=== PATIENT | male | born 1945 | race Caucasian/White ===

== ENCOUNTER 2020-12-02 15:05 | Emergency (ER) | payer MEDICARE, SELFPAY ==
[2020-12-02 15:06] VITALS: BP 144/82; PULSE 71; RESP 14; TEMP 36.7; O2SAT 99; BMI 24.3
--- NOTE | 2020-12-02 15:20 | XRR_ITS ---
PROCEDURE INFORMATION: Exam: XR Left Ribs Exam date and time: 12/02/2020 3:20 PM Age: 75 years old Clinical indication: Injury or trauma; Fall; Rib area, left side; Blunt trauma; Injury details: Fell off horse; Additional info: L sided rib pain TECHNIQUE: Imaging protocol: XR Left ribs. Views: 2 views. COMPARISON: CR (CHEST, ) 12/02/2020 3:48 PM FINDINGS: Bones/joints: Nondisplaced left 8th and 9th rib fractures are appreciated. Irregularity of the left midclavicle may be secondary to prior injury. Pleural space: No pneumothorax is seen. XR/XR ribs LT 2V* [id number] IMPRESSION: 1. Left 8th and 9th rib fractures. 2. Chronic appearing left midclavicle fracture.
--- NOTE | 2020-12-02 15:20 | CTR_ITS ---
PROCEDURE INFORMATION: Exam: CT Head Without Contrast Exam date and time: 12/02/2020 3:20 PM Age: 75 years old Clinical indication: Injury or trauma; Fall; Blunt trauma (contusions or hematomas); Consciousness not specified; Additional info: Rule out brain bleed TECHNIQUE: Imaging protocol: Computed tomography of the head without contrast. Radiation optimization: All CT scans at this facility use at least one of these dose optimization techniques: automated exposure control; mA and/or kV adjustment per patient size (includes targeted exams where dose is matched to clinical indication); or iterative reconstruction. COMPARISON: No relevant prior studies available. RADIATION DOSE METRICS: Total DLP (mGy-cm): 844.47 FINDINGS: Brain: Normal. No hemorrhage. Unremarkable white matter. No mass effect. Cerebral ventricles: No ventriculomegaly. Paranasal sinuses: A small amount of fluid is present in the right frontal, posterior ethmoid and maxillary sinuses. Mastoid air cells: Visualized mastoid air cells are well aerated. Orbital cavity: The intraorbital contents appear normal. Bones/joints: Nondisplaced right frontal bone fracture is noted extending into the right frontal sinus and right orbital roof. Soft tissues: Soft tissue swelling and a tiny laceration are present in the right aspect of the forehead. CT/CT head wo con* [id number] IMPRESSION: 1. No acute intracranial abnormality. 2. Nondisplaced right frontal bone fracture with extension into the right frontal sinus and right orbital roof. Radiation Dose CTDIVOL = (mGy): DLP = 844.47 (mGy-cm)
--- NOTE | 2020-12-02 15:20 | XRR_ITS ---
PROCEDURE INFORMATION: Exam: XR Right Forearm Exam date and time: 12/02/2020 3:20 PM Age: 75 years old Clinical indication: Injury or trauma; Fall; Blunt trauma (contusions or hematomas); Arm, lower; Right; Injury details: Fell of horse; Additional info: R forearm hematoma TECHNIQUE: Imaging protocol: XR Right forearm. Views: 2 views. COMPARISON: No relevant prior studies available. FINDINGS: Bones/joints: No fracture or dislocation. A small triceps tendon enthesophyte is noted. Soft tissues: Soft tissue swelling is seen in the mid forearm XR/XR forearm RT 2V [id number] IMPRESSION: No fracture or dislocation.
--- NOTE | 2020-12-02 15:20 | CTR_ITS ---
PROCEDURE INFORMATION: Exam: CT Maxillofacial Without Contrast Exam date and time: 12/02/2020 3:20 PM Age: 75 years old Clinical indication: Injury or trauma; Fall; Blunt trauma (contusions or hematomas); Forehead; Additional info: Orbital hematoma R, laceration TECHNIQUE: Imaging protocol: Computed tomography images of the face without contrast. Radiation optimization: All CT scans at this facility use at least one of these dose optimization techniques: automated exposure control; mA and/or kV adjustment per patient size (includes targeted exams where dose is matched to clinical indication); or iterative reconstruction. COMPARISON: CT head wo con* [id number] 12/02/2020 4:16 PM RADIATION DOSE METRICS: Total DLP (mGy-cm): 784.78 FINDINGS: Orbital cavity: The intraorbital contents appear normal. Bones/joints: Nondisplaced fracture of the right frontal bone is again seen extending into the right frontal sinus and right orbital roof and superior orbital rim. Paranasal sinuses: A small amount of fluid is present in the right frontal, posterior ethmoid and maxillary sinuses. Soft tissues: Soft tissue swelling and a tiny focus of subcutaneous air are present in the right aspect of the forehead. CT/CT facial bones wo con* [id number] IMPRESSION: Nondisplaced right frontal bone fracture with involvement of the right frontal sinus, and right orbital roof and superior rim Radiation Dose CTDIVOL = (mGy): DLP = 784.78 (mGy-cm)
--- NOTE | 2020-12-02 15:20 | XRR_ITS ---
PROCEDURE INFORMATION: Exam: XR Pelvis Exam date and time: 12/02/2020 3:20 PM Age: 75 years old Clinical indication: Injury or trauma; Other: Fell off horse; Blunt trauma (contusions or hematomas); Bilateral; Pelvic region; Additional info: Trauma screen TECHNIQUE: Imaging protocol: XR pelvis. Views: 1 or 2 view. COMPARISON: No relevant prior studies available. FINDINGS: Bones/joints: No fracture or dislocation. Soft tissues: Unremarkable. XR/XR pelvis 1-2V* [id number] IMPRESSION: No fracture or dislocation.
--- NOTE | 2020-12-02 15:20 | XRR_ITS ---
PROCEDURE INFORMATION: Exam: XR Chest Exam date and time: 12/02/2020 3:20 PM Age: 75 years old Clinical indication: Injury or trauma; Fall; Blunt trauma (contusions or hematomas); Injury details: Fell off horse; Additional info: Trauma screen TECHNIQUE: Imaging protocol: XR of the chest. Views: 1 view. COMPARISON: No relevant prior studies available. FINDINGS: Lungs: The lungs are clear. Pleural spaces: Unremarkable. No pleural effusion. No pneumothorax. Heart/Mediastinum: Unremarkable. No cardiomegaly. Bones/joints: Left 9th rib fracture is appreciated. XR/XR chest 1V portable [id number] IMPRESSION: No acute pulmonary abnormality. Left 9th rib fracture is seen. No pneumothorax.
--- NOTE | 2020-12-02 15:36 | W.ED.GENADLT ---
HPI - General Adult General: Chief complaint: ER Hold Stated complaint: FOREHEAD LAC S/P THROWN FROM HORSE Time Seen by Provider: 12/02/20 15:06 History of Present Illness: HPI narrative: Patient is a 75-year-old male without any significant past medical history presents emergency room after falling off his horse going at 30 mph with forehead laceration, right forearm/L posterior rib, and R knee pain. Patient denies any LOC. Patient says that he had mild bleeding from his forehead. Patient denies any other injuries. Patient reports road rashes on b/l arms. He has a severe allergic reaction to the the Tdap vaccine. No other complaints. Onset:1 hr ago Duration:1 hr Location: wild Severity:moderate Review of Systems Narrative: Constitutional: No fever, no chills. HEENT: No vision changes, +forehead laceration CV: No chest pain, no palpitations PULM: no cough, no dyspnea. GI: No abdominal pain, no N/V/D. : No dysuria MSKEL: +R forearm hematoma, +R knee cap pain SKIN: +road rashes NEURO: No headache, no focal weakness. HEME: No visible bruises PSYCH: Normal mood BACK: +L posterior thoracic back pain PFSH ED PFSH: Medical History (Updated 12/03/20 @ 03:04 by Dari Gil MD) COVID-19 vaccination declined Injury while horseback riding (12/02/20) With right open frontal bone fracture, nondisplaced, extension to right frontal sinus and right orbital roof and superior rim; left lateral 8th/9th rib fractures, left clavicle fracture, subcutaneous hematoma left flank and gluteal region Medical condition not demonstrated Surgical History (Updated 12/02/20 @ 22:16 by Dari Gil MD) History of ankle surgery Family History (Updated 12/02/20 @ 22:24 by Dari Gil MD) Other Family history non-contributory Social History (Updated 12/02/20 @ 22:45 by Dari Gil MD) Smoking and tobacco status: former smoker Alcohol intake: current Alcohol intake frequency: holidays/special occasions only Lives independently: Yes Highest education level completed: Professional Degree (MD, DO, REYNA, DVM, DDS, DPM, etc) 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 service: Yes 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 Additional social history: follows more eastern/holistic medical care practices requests that before any medications are given he be allowed to sense if will be able to tolerate them (ask him how to best do this) prefers mind/body techniques and non-pharmacological approaches to care Physical Exam Narrative: EXAM NARRATIVE: Head: +linear frontal forehead laceration Eyes: PERRL, conjunctiva without injection, EOMI, visual acuity unchanged in both eyes, EOMI b/l ENT: Mucous membrane moist, +mild R periorbital hematoma without any proptosis NECK: Supple, ROM intact LUNGS: LCTAB, no crackles/rhonchi CV: RRR ABDOMEN: Soft, nontender in all quadrants EXTREMITY: Normal ROM intact in all extremities, 2+ radials in the UE, +mild tenderness to palpation over the R forearm shaft, neurovascular senations intact in all extremities, +R knee cap tenderness to palpation, +patient able to bear weight over the R knee SKIN: +abrasions over the R and L arms, +linear forehead laceration NEURO: Awake and alert, no focal motor deficits PSYCH: Normal mood and affect Course Vital Signs: Vital signs: Vital Signs Temperature 98.0 F 12/03/20 06:24 Pulse Rate 76 12/03/20 15:28 Respiratory Rate 18 12/03/20 15:28 Blood Pressure 111/65 12/03/20 15:28 Pulse Oximetry 95 12/03/20 15:28 MDM - General Adult MDM Narrative: Medical decision making narrative: 75-year-old male who presents the emergency room after falling off a horse going at 30 mph. On exam, patient has a laceration over frontal face. In addition, patient reports right forearm, right knee and left back rib pain. Will work-up for trauma today. CT brain is negative for brain bleed. CT face showed orbital floor fracture and frontal bone fracture. Given laceration overlying the frontal bone, have discussed finding with patient as this may suggest an open fracture. I have offered patient transfer to outside hospital for possible washout. At this time, patient declined and elects to go home. Patient electing to leave AMA. Patient counseled regarding risks of leaving including severe morbidity including severe facial infection, brain infection, or any other unwanted consequences of leaving against medical advice today. Patient verbalizes understanding of the risks and still wishes to leave AMA. Signed AMA paperwork. Patient advised that patient is welcome to return at any time. Was instructed that patient may come back if symptoms continue to persist and that emergent adverse conditions have not fully been ruled out. Patient is A&Ox3 and has capacity and is of sound mind to make decisions. I have given patient a prescription for Bactrim and Keflex to go home with. Patient reassures me that he will take the antibiotics as needed. Again, patient refused to be transported to outside hospital for evaluation of complex open fracture. The wound was extensively irrigated and tapped with Steri-Strip. No sutures were placed given high concerns for possible open fracture and wound infection. I have informed patient to keep the wound clean. Chest x-ray showed left-sided eighth and ninth rib. Shortly prior to patient leaving AGAINST MEDICAL ADVICE, he sat up and suddenly became very lightheaded and almost passed out. Patient had a blood pressure reading of 70/30 and heart rate in the 40s. Patient never lost LOC, but report diaphoresis and fatigue. Eventually blood pressure improved with 1 L of IVF. I performed bedside fast which did not show any signs of acute abdominal bleed. CT chest and CT abdomen pelvis did not show any signs of acute or occult bleeding. H&H appears to be stable. No suspicion for cord injury as patient has no focal tenderness to palpation on reassessment. Again I will have offered patient transfer for operative washout as his wound may get infected given underlying fracture, patient declined at this time. Patient verbalized understanding of the risk of not getting a operative washout and verbalizes desire for observation and outpatient management. Patient still elects to stay in the hospital given symptoms of lightheadedness, diaphoresis during these episodes where he almost passed out. In addition, patient can planes of intractable rib pain despite multiple pain medication including fentanyl. Patient will need outpatient incentive spirometry. Patient will be admitted to the hospital for observation at this time. Disposition: Observation Lab Data: Labs: Lab Results 12/02/20 12/02/20 12/02/20 Range/Units 15:10 15:10 18:03 WBC 7.2 (4.0-10.0) 10^3/ uL RBC 4.15 (4.1-5.3) 10^6/u L Hgb 12.9 (11.7-16.6) g/dL Hct 39.7 L (42.0-52.0) % MCV 95.7 H (80-94) fl MCH 31.1 (28.0-34.0) pg MCHC 32.5 (30.0-36.0) g/dL RDW 12.4 (12.1-15.1) % Plt Count 172 (130-400) 10^3/c mm MPV 9.9 (7.4-10.4) fL Neut % (Auto) 46.1 % Lymph % (Auto) 44.4 % [place] % (Auto) 7.9 % Eos % (Auto) 0.4 % Baso % (Auto) 0.4 % Neut # (Auto) 3.32 (1.8-7.7) 10^3/u L Lymph # (Auto) 3.2 (0.8-4.8) 10^3/u L [place] # (Auto) 0.6 (0.2-0.9) 10^3/u L Eos # (Auto) 0.0 (0.0-0.8) 10^3/u L Baso # (Auto) 0.0 (0.0-0.1) 10^3/u L Nucleated RBC % (a uto) 0 % Nucleated RBCs # 0.0 /100WBC Sodium 141 (136-145) mmol/L Potassium 4.0 (3.5-5.1) mmol/L Chloride 106 (98-107) mmol/L Carbon Dioxide 24 (22-29) mmol/L Anion Gap 15.0 (5-19) BUN 14 (8-23) mg/dL Creatinine 1.1 (0.7-1.2) mg/dL GFR Calculation Not Reportable Glucose 130 H (65-115) mg/dL Calculated Osmolal ity 294 (285-295) mOsm/k g Calcium 8.4 L (8.5-10.5) mg/dL Total Bilirubin 0.5 (0.15-1.2) mg/dL AST 25 (0-40) U/L ALT 14 (0-41) U/L Alkaline Phosphata se 81 (40-130) IU/L Troponin T Gen 5 n g/L (0-15) ng/L Total Protein 6.4 L (6.6-8.7) g/dL Albumin 4.2 (3.5-5.2) g/dL Globulin 2.2 (1.3-4.6) g/dL Lipase 32 (13-60) U/L Blood Type A Positive Rho(D) Type Positive Antibody Screen Negative 12/02/20 12/02/20 12/02/20 Range/Units 18:03 18:03 20:20 WBC 12.9 H (4.0-10.0) 10^3/ uL RBC 4.08 L (4.1-5.3) 10^6/u L Hgb 12.7 (11.7-16.6) g/dL Hct 39.6 L (42.0-52.0) % MCV 97.1 H (80-94) fl MCH 31.1 (28.0-34.0) pg MCHC 32.1 (30.0-36.0) g/dL RDW 12.4 (12.1-15.1) % Plt Count 184 (130-400) 10^3/c mm MPV 10.1 (7.4-10.4) fL Neut % (Auto) 82.5 % Lymph % (Auto) 7.4 % [place] % (Auto) 9.0 % Eos % (Auto) 0.0 % Baso % (Auto) 0.4 % Neut # (Auto) 10.67 H (1.8-7.7) 10^3/u L Lymph # (Auto) 1.0 (0.8-4.8) 10^3/u L [place] # (Auto) 1.2 H (0.2-0.9) 10^3/u L Eos # (Auto) 0.0 (0.0-0.8) 10^3/u L Baso # (Auto) 0.1 (0.0-0.1) 10^3/u L Nucleated RBC % (a uto) 0 % Nucleated RBCs # 0.0 /100WBC Sodium 141 (136-145) mmol/L Potassium 4.0 (3.5-5.1) mmol/L Chloride 105 (98-107) mmol/L Carbon Dioxide 24 (22-29) mmol/L Anion Gap 16.0 (5-19) BUN 17 (8-23) mg/dL Creatinine 0.9 (0.7-1.2) mg/dL GFR Calculation Not Reportable Glucose 132 H (65-115) mg/dL Calculated Osmolal ity 295 (285-295) mOsm/k g Calcium 8.3 L (8.5-10.5) mg/dL Total Bilirubin 0.6 (0.15-1.2) mg/dL AST 24 (0-40) U/L ALT 13 (0-41) U/L Alkaline Phosphata se 78 (40-130) IU/L Troponin T Gen 5 n g/L 7 (0-15) ng/L Total Protein 5.9 L (6.6-8.7) g/dL Albumin 4.0 (3.5-5.2) g/dL Globulin 1.9 (1.3-4.6) g/dL Lipase (13-60) U/L Blood Type Rho(D) Type Antibody Screen 12/03/20 12/03/20 Range/Units 04:54 04:54 WBC 5.9 (4.0-10.0) 10^3/ uL RBC 3.09 L (4.1-5.3) 10^6/u L Hgb 9.6 L (11.7-16.6) g/dL Hct 29.6 L (42.0-52.0) % MCV 95.8 H (80-94) fl MCH 31.1 (28.0-34.0) pg MCHC 32.4 (30.0-36.0) g/dL RDW 12.6 (12.1-15.1) % Plt Count 146 (130-400) 10^3/c mm MPV 10.3 (7.4-10.4) fL Neut % (Auto) 64.6 % Lymph % (Auto) 22.4 % [place] % (Auto) 12.6 % Eos % (Auto) 0.0 % Baso % (Auto) 0.2 % Neut # (Auto) 3.84 (1.8-7.7) 10^3/u L Lymph # (Auto) 1.3 (0.8-4.8) 10^3/u L [place] # (Auto) 0.8 (0.2-0.9) 10^3/u L Eos # (Auto) 0.0 (0.0-0.8) 10^3/u L Baso # (Auto) 0.0 (0.0-0.1) 10^3/u L Nucleated RBC % (a uto) 0 % Nucleated RBCs # 0.0 /100WBC Sodium 136 (136-145) mmol/L Potassium 4.2 (3.5-5.1) mmol/L Chloride 107 (98-107) mmol/L Carbon Dioxide 22 (22-29) mmol/L Anion Gap 11.2 (5-19) BUN 15 (8-23) mg/dL Creatinine 0.7 (0.7-1.2) mg/dL GFR Calculation Not Reportable Glucose 115 (65-115) mg/dL Calculated Osmolal ity 284 L (285-295) mOsm/k g Calcium 7.2 L (8.5-10.5) mg/dL Total Bilirubin (0.15-1.2) mg/dL AST (0-40) U/L ALT (0-41) U/L Alkaline Phosphata se (40-130) IU/L Troponin T Gen 5 n g/L (0-15) ng/L Total Protein (6.6-8.7) g/dL Albumin (3.5-5.2) g/dL Globulin (1.3-4.6) g/dL Lipase (13-60) U/L Blood Type Rho(D) Type Antibody Screen Imaging Data^: Other Imaging: My impression: [address] [address]NCww ReportSigned Patient: Jonathan Campo #: [id number]: 8Acct#:[id number]/Sex: 75 / MADM Date: 12/02/20Loc: ERRoom/Bed:Attending Dr: Ordering Provider/Ordering MD: Lobo Guevara MD Date of Service: 12/02/20 Procedure(s): XR ribs LT 2V* [id number] Accession Number(s): [id number] Report Number: [id number] PROCEDURE INFORMATION: Exam: XR Left Ribs Exam date and time: 12/02/2020 3:20 PM Age: 75 years old Clinical indication: Injury or trauma; Fall; Rib area, left side; Blunt trauma; Injury details: Fell off horse; Additional info: L sided rib pain TECHNIQUE: Imaging protocol: XR Left ribs. Views: 2 views. COMPARISON: CR (CHEST, ) 12/02/2020 3:48 PM FINDINGS: Bones/joints: Nondisplaced left 8th and 9th rib fractures are appreciated. Irregularity of the left midclavicle may be secondary to prior injury. Pleural space: No pneumothorax is seen. XR/XR ribs LT 2V* [id number] IMPRESSION: 1. Left 8th and 9th rib fractures. 2. Chronic appearing left midclavicle fracture. Dictated By:Spike Arguelles MDSigned By:Spike Arguelles MDSigned Date/Time:12/02/20 1645DD/ [address] [address]EVnw ReportSigned Patient: Jonathan Campo #: [id number]: 8Acct#:[id number]/Sex: 75 / MADM Date: 12/02/20Loc: ERRoom/Bed:Attending Dr: Ordering Provider/Ordering MD: Lobo Guevara MD Date of Service: 12/02/20 Procedure(s): XR pelvis 1-2V* [id number] Accession Number(s): [id number] Report Number: [id number] PROCEDURE INFORMATION: Exam: XR Pelvis Exam date and time: 12/02/2020 3:20 PM Age: 75 years old Clinical indication: Injury or trauma; Other: Fell off horse; Blunt trauma (contusions or hematomas); Bilateral; Pelvic region; Additional info: Trauma screen TECHNIQUE: Imaging protocol: XR pelvis. Views: 1 or 2 view. COMPARISON: No relevant prior studies available. FINDINGS: Bones/joints: No fracture or dislocation. Soft tissues: Unremarkable. XR/XR pelvis 1-2V* [id number] IMPRESSION: No fracture or dislocation. Dictated By:Spike Arguelles MDSigned By:Spike Arguelles MDSigned Date/Time:12/02/20 1638DD/ [address] [address] [facility].[place], [place] [address]RN Scan ReportSigned Patient: Jonathan Campo #: [id number]: [id number]#:[id number]/Sex: 75 / MADM Date: 12/02/20Loc: ERRoom/Bed:Attending Dr: Ordering Provider/Ordering MD: Lobo Guevara MD Date of Service: 12/02/20 Procedure(s): CT head wo con* [id number] Accession Number(s): [id number] Report Number: [id number] PROCEDURE INFORMATION: Exam: CT Head Without Contrast Exam date and time: 12/02/2020 3:20 PM Age: 75 years old Clinical indication: Injury or trauma; Fall; Blunt trauma (contusions or hematomas); Consciousness not specified; Additional info: Rule out brain bleed TECHNIQUE: Imaging protocol: Computed tomography of the head without contrast. Radiation optimization: All CT scans at this facility use at least one of these dose optimization techniques: automated exposure control; mA and/or kV adjustment per patient size (includes targeted exams where dose is matched to clinical indication); or iterative reconstruction. COMPARISON: No relevant prior studies available. RADIATION DOSE METRICS: Total DLP (mGy-cm): 844.47 FINDINGS: Brain: Normal. No hemorrhage. Unremarkable white matter. No mass effect. Cerebral ventricles: No ventriculomegaly. Paranasal sinuses: A small amount of fluid is present in the right frontal, posterior ethmoid and maxillary sinuses. Mastoid air cells: Visualized mastoid air cells are well aerated. Orbital cavity: The intraorbital contents appear normal. Bones/joints: Nondisplaced right frontal bone fracture is noted extending into the right frontal sinus and right orbital roof. Soft tissues: Soft tissue swelling and a tiny laceration are present in the right aspect of the forehead. CT/CT head wo con* [id number] IMPRESSION: 1. No acute intracranial abnormality. 2. Nondisplaced right frontal bone fracture with extension into the right frontal sinus and right orbital roof. Radiation Dose CTDIVOL = (mGy): DLP = 844.47 (mGy-cm) Dictated By:Spike Arguelles MDSigned By:Spike Arguelles MDSigned Date/Time:12/02/20 1632DD/ [address] [place], [place] [address]WCal ReportSigned Patient: Jonathan Campo #: [id number]: 8Acct#:[id number]/Sex: MADM Date: 12/02/20Loc: ERRoom/Bed:Attending Dr: Ordering Provider/Ordering MD: Lobo Guevara MD Date of Service: 12/02/20 Procedure(s): XR forearm RT 2V 24646 Accession Number(s): [id number] Report Number: [id number] PROCEDURE INFORMATION: Exam: XR Right Forearm Exam date and time: 12/02/2020 3:20 PM Age: 75 years old Clinical indication: Injury or trauma; Fall; Blunt trauma (contusions or hematomas); Arm, lower; Right; Injury details: Fell of horse; Additional info: R forearm hematoma TECHNIQUE: Imaging protocol: XR Right forearm. Views: 2 views. COMPARISON: No relevant prior studies available. FINDINGS: Bones/joints: No fracture or dislocation. A small triceps tendon enthesophyte is noted. Soft tissues: Soft tissue swelling is seen in the mid forearm XR/XR forearm RT 2V 63677 IMPRESSION: No fracture or dislocation. Dictated By:Spike Arguelles MDSigned By:Spike Arguelles MDSigned Date/Time:12/02/209/ [address] [address]DQ Scan ReportSigned Patient: Jonathan Campo #: [id number]: [id number]#:[id number]/Sex: MADM Date: 12/02/20Loc: ERRoom/Bed:Attending Dr: Ordering Provider/Ordering MD: Lobo Guevara MD Date of Service: 12/02/20 Procedure(s): CT facial bones wo con* [id number] Accession Number(s): [id number] Report Number: [id number] PROCEDURE INFORMATION: Exam: CT Maxillofacial Without Contrast Exam date and time: 12/02/2020 3:20 PM Age: 75 years old Clinical indication: Injury or trauma; Fall; Blunt trauma (contusions or hematomas); Forehead; Additional info: Orbital hematoma R, laceration TECHNIQUE: Imaging protocol: Computed tomography images of the face without contrast. Radiation optimization: All CT scans at this facility use at least one of these dose optimization techniques: automated exposure control; mA and/or kV adjustment per patient size (includes targeted exams where dose is matched to clinical indication); or iterative reconstruction. COMPARISON: CT head wo con* [id number] 12/02/2020 4:16 PM RADIATION DOSE METRICS: Total DLP (mGy-cm): 784.78 FINDINGS: Orbital cavity: The intraorbital contents appear normal. Bones/joints: Nondisplaced fracture of the right frontal bone is again seen extending into the right frontal sinus and right orbital roof and superior orbital rim. Paranasal sinuses: A small amount of fluid is present in the right frontal, posterior ethmoid and maxillary sinuses. Soft tissues: Soft tissue swelling and a tiny focus of subcutaneous air are present in the right aspect of the forehead. CT/CT facial bones wo con* 61646 IMPRESSION: Nondisplaced right frontal bone fracture with involvement of the right frontal sinus, and right orbital roof and superior rim Radiation Dose CTDIVOL = (mGy): DLP = 784.78 (mGy-cm) Dictated By:Spike Arguelles MDSigned By:Spike Arguelles MDSigned Date/Time:12/02/201635DD/ [address] [address]EUcf ReportSigned Patient: Jonathan Campo #: [id number]: [id number]#:[id number]/Sex: 75 / MADM Date: 12/02/20Loc: ERRoom/Bed:Attending Dr: Ordering Provider/Ordering MD: Lobo Guevara MD Date of Service: 12/02/20 Procedure(s): XR chest 1V portable [id number] Accession Number(s): [id number] Report Number: [id number] PROCEDURE INFORMATION: Exam: XR Chest Exam date and time: 12/02/2020 3:20 PM Age: 75 years old Clinical indication: Injury or trauma; Fall; Blunt trauma (contusions or hematomas); Injury details: Fell off horse; Additional info: Trauma screen TECHNIQUE: Imaging protocol: XR of the chest. Views: 1 view. COMPARISON: No relevant prior studies available. FINDINGS: Lungs: The lungs are clear. Pleural spaces: Unremarkable. No pleural effusion. No pneumothorax. Heart/Mediastinum: Unremarkable. No cardiomegaly. Bones/joints: Left 9th rib fracture is appreciated. XR/XR chest 1V portable [id number] IMPRESSION: No acute pulmonary abnormality. Left 9th rib fracture is seen. No pneumothorax. Dictated By:Spike Arguelles MDSigned By:Spike Arguelles MDSigned Date/Time:12/02/201644DD/ 43 Discharge Plan Discharge Patient Disposition: Left Against Medical Advice Clinical Impression: Open fracture, Intractable back pain Fracture of frontal bone Qualifiers: Encounter type: initial encounter Fracture type: open Qualified Code(s): S02.0XXB - Fracture of vault of skull, initial encounter for open fracture Orbital fracture Qualifiers: Encounter type: initial encounter Fracture type: closed Qualified Code(s): S02.85XA - Fracture of orbit, unspecified, initial encounter for closed fracture Fracture, ribs Qualifiers: Encounter type: initial encounter Fracture type: closed Laterality: left Qualified Code(s): S22.42XA - Multiple fractures of ribs, left side, initial encounter for closed fracture Condition: Stable Prescriptions: New celecoxib 200 mg Capsule 200 mg PO Q12H 14 Days Qty: 28 RF: 1 clindamycin HCl 150 mg Capsule 600 mg PO Q8H 2 Days Qty: 24 RF: 0 Acetaminophen Extra Strength 500 mg tablet 500 mg PO Q4H MDD 4 gm PRN (Reason: pain) Qty: 30 RF: 0 No Action No Known Home Medications RF: 0 Discharge Orders: Discharge Order (Routine); Ordered 12/03/20 Ordered By: Cal Randle Discharge Diet: Advance as tolerated Discharge Activity: Resume usual activity Patient Instructions: Laceration (ED) Activity Restrictions/Additional Instructions: Please come back to the emergency room if you notice they have any pus coming out of the wound, if have any fever or chills, drainage, any worsening pain, or any new or concerning complaints. Coding Level of Care Code ED Web Page Designer for Ernst Clark
[2020-12-02 15:49] LABS: Basophils % 0.4 %; Eosinophils % 0.4 %; Hematocrit 39.7 % (42.0-52.0); Hemoglobin 12.9 g/dL (11.7-16.6); Lymphocytes # 3.2 10^3/uL (0.8-4.8); Lymphocytes % 44.4 %; Mean Corpuscular HGB Conc 32.5 g/dL (30.0-36.0); Mean Corpuscular Hemoglobin 31.1 pg (28.0-34.0); Mean Corpuscular Volume 95.7 fl (80-94); Mean Platelet Volume 9.9 fL (7.4-10.4); Monocytes # 0.6 10^3/uL (0.2-0.9); Monocytes % 7.9 %; Neutrophils # 3.32 10^3/uL (1.8-7.7); Neutrophils % 46.1 %; Nucleated Red Blood Cells % 0 %; Platelet Count 172 10^3/cmm (130-400); Red Blood Count 4.15 10^6/uL (4.1-5.3); Red Cell Distribution Width 12.4 % (12.1-15.1); White Blood Count 7.2 10^3/uL (4.0-10.0)
[2020-12-02 16:04] LABS: Alanine Aminotransferase 14 U/L (0-41); Albumin Level 4.2 g/dL (3.5-5.2); Alkaline Phosphatase 81 IU/L (40-130); Aspartate Amino Transferase 25 U/L (0-40); Blood Urea Nitrogen 14 mg/dL (8-23); Calcium 8.4 mg/dL (8.5-10.5); Carbon Dioxide 24 mmol/L (22-29); Chloride 106 mmol/L (98-107); Globulin 2.2 g/dL (1.3-4.6); Glucose 130 mg/dL (65-115); Lipase 32 U/L (13-60); Osmolality Calculated 294 mOsm/kg (285-295); Sodium 141 mmol/L (136-145); Total Bilirubin 0.5 mg/dL (0.15-1.2); Total Protein 6.4 g/dL (6.6-8.7)
[2020-12-02 17:39] VITALS: BP 80/45
[2020-12-02 17:40] VITALS: BP 76/44
--- NOTE | 2020-12-02 18:09 | CTR_ITS ---
PROCEDURE INFORMATION: Exam: CT Chest With Contrast; Diagnostic Exam date and time: 12/02/2020 6:09 PM Age: 75 years old Clinical indication: Injury or trauma; Other: Thrown from horse; Generalized; Blunt trauma (contusions or hematomas); Patient HX: Thrown from moving horse L rib fx's abd pain and hypotensive; Additional info: Evaluate for abd pain TECHNIQUE: Imaging protocol: Diagnostic computed tomography of the chest with contrast. Radiation optimization: All CT scans at this facility use at least one of these dose optimization techniques: automated exposure control; mA and/or kV adjustment per patient size (includes targeted exams where dose is matched to clinical indication); or iterative reconstruction. Contrast material: OMNI 300; Contrast volume: 95 ml; Contrast route: INTRAVENOUS (IV); COMPARISON: CR (CHEST, ) 12/02/2020 3:48 PM RADIATION DOSE METRICS: Total DLP (mGy-cm): 1128.47 FINDINGS: Lungs: Dependent atelectasis in the bilateral lower lobes. No acute pulmonary infiltrates. Pleural spaces: No pleural effusion or pneumothorax noted. Heart: No cardiomegaly. No pericardial effusion. Aorta: No aortic aneurysm. Lymph nodes: Unremarkable. No enlarged lymph nodes. Bones/joints: Acute fracture of the mid/distal left clavicle. Acute nondisplaced fractures of the left lateral 8th and 9th ribs. Degenerative thoracic spine changes. No acute fracture of the thoracic spine. The sternum appears intact. Soft tissues: The soft tissues appear unremarkable. IMPRESSION: 1. Acute fracture of the mid/distal left clavicle. 2. Acute nondisplaced fractures of the left lateral 8th and 9th ribs. No associated pneumothorax. 3. Dependent atelectasis in the bilateral lower lobes. No acute pulmonary infiltrates. PROCEDURE INFORMATION: Exam: CT Abdomen And Pelvis With Contrast Exam date and time: 12/02/2020 6:09 PM Age: 75 years old Clinical indication: Injury or trauma; Other: Thrown from horse; Generalized; Blunt trauma (contusions or hematomas); Patient HX: Thrown from moving horse L rib fx's abd pain and hypotensive; Additional info: Evaluate for abd pain TECHNIQUE: Imaging protocol: Computed tomography of the abdomen and pelvis with contrast. Radiation optimization: All CT scans at this facility use at least one of these dose optimization techniques: automated exposure control; mA and/or kV adjustment per patient size (includes targeted exams where dose is matched to clinical indication); or iterative reconstruction. Contrast material: OMNI 300; Contrast volume: 95 ml; Contrast route: INTRAVENOUS (IV); COMPARISON: CR (CHEST, ) 12/02/2020 3:48 PM RADIATION DOSE METRICS: Total DLP (mGy-cm): 0872119 FINDINGS: Liver: Simple appearing hepatic cysts measuring up to 1.7 cm. Gallbladder and bile ducts: No calcified gallstones in the gallbladder. No gallbladder wall thickening. No pericholecystic fluid. No biliary dilatation. Pancreas: The pancreas is normal in appearance. No pancreatic duct dilatation. Spleen: The spleen is normal in size and appearance. Adrenal glands: The adrenal glands appear within normal limits. Kidneys and ureters: Simple appearing 1.8 cm right renal cyst. No solid renal masses. No acute renal injury. Stomach and bowel: There is a hiatal hernia noted.No acute gastric abnormality demonstrated. Appendix: No evidence of appendicitis. Intraperitoneal space: No free air. No significant fluid collection. Vasculature: The aorta is atherosclerotic. No aortic aneurysm. Lymph nodes: No pathologically enlarged lymph nodes are demonstrated. Urinary bladder: The urinary bladder is unremarkable in appearance. Reproductive: Unremarkable as visualized. Bones/joints: Unremarkable. No acute osseous abnormality. Soft tissues: Large left subcutaneous hematoma extending from the left flank to the left gluteal area. Small bilateral inguinal hernias identified, containing only fat. CT/CT chest abd pel w con* IMPRESSION: 1. Large left subcutaneous hematoma extending from the left flank to the left gluteal area. No lumbar spine or pelvic fractures are associated. 2. No evidence of solid organ injury. COMMENTS: Consistent with the [employer]'s Incidental Findings Committee white paper (J Am Adam Radiol 2018): Any incidental renal lesion less than 1 cm or classified as too small to characterize, or any incidental cystic renal lesion characterized as simple-appearing, is likely benign. No follow-up imaging is recommended for these lesions per consensus recommendations based on imaging criteria. Radiation Dose CTDIVOL = (mGy): DLP = 1128.47~4965801 (mGy-cm)
[2020-12-02 18:24] VITALS: BP 107/63; PULSE 73; RESP 18
[2020-12-02] MEDS: sodium chloride 0.9% 1,000 ML 999 ML IV (18:26)
--- NOTE | 2020-12-02 18:28 | PC.NURSE ---
Patient was ready to be discharged and was leaving AMA. As this nurse was sitting up pt on the edge of the bed, he appeared to have a near syncopal episode. Pt was assisted back to a supine position and did not immediately answer any attempts to when asking how he was feeling. Pt's vitals taken and Dr Guevara notified.
[2020-12-02] MEDS: iohexol 300 mg/mL 100 mL Btl IV (18:48)
[2020-12-02 18:56] LABS: Basophils # 0.1 10^3/uL (0.0-0.1); Basophils % 0.4 %; Hematocrit 39.6 % (42.0-52.0); Hemoglobin 12.7 g/dL (11.7-16.6); Lymphocytes % 7.4 %; Mean Corpuscular HGB Conc 32.1 g/dL (30.0-36.0); Mean Corpuscular Hemoglobin 31.1 pg (28.0-34.0); Mean Corpuscular Volume 97.1 fl (80-94); Mean Platelet Volume 10.1 fL (7.4-10.4); Monocytes # 1.2 10^3/uL (0.2-0.9); Neutrophils # 10.67 10^3/uL (1.8-7.7); Neutrophils % 82.5 %; Nucleated Red Blood Cells % 0 %; Platelet Count 184 10^3/cmm (130-400); Red Blood Count 4.08 10^6/uL (4.1-5.3); Red Cell Distribution Width 12.4 % (12.1-15.1); White Blood Count 12.9 10^3/uL (4.0-10.0)
[2020-12-02 19:21] LABS: Alanine Aminotransferase 13 U/L (0-41); Alkaline Phosphatase 78 IU/L (40-130); Aspartate Amino Transferase 24 U/L (0-40); Blood Urea Nitrogen 17 mg/dL (8-23); Calcium 8.3 mg/dL (8.5-10.5); Carbon Dioxide 24 mmol/L (22-29); Chloride 105 mmol/L (98-107); Globulin 1.9 g/dL (1.3-4.6); Glucose 132 mg/dL (65-115); Osmolality Calculated 295 mOsm/kg (285-295); Sodium 141 mmol/L (136-145); Total Bilirubin 0.6 mg/dL (0.15-1.2); Total Protein 5.9 g/dL (6.6-8.7)
[2020-12-02 19:47] VITALS: RESP 18
[2020-12-02] MEDS: fentaNYL 50 mcg/mL INJ 2mL 25 MCG IVP ×2 (19:47→23:14)
[2020-12-02] MEDS: ondansetron 2 mg/ML SDV 2 mL 4 MG IVP (20:00)
[2020-12-02 21:39] LABS: Troponin T (5th) Once 7 ng/L (0-15)
--- NOTE | 2020-12-02 22:15 | P.CONIM_ITS ---
Providers/Reason For Consult Consulting Physician/Specialty*: Jeffery, Hospitalist Reason for Consult*: Medical management, vasovagal reaction Requesting Physician: Dr Guevara Attending Physician: Cal Randle DO Primary Care Provider: Patient denied having a a primary care provider whom should receive information about this visit History of Present Illness History of Present Illness Geovanny Herrera is a 75 year old male who presented to the emergency room after an injury while horse riding. He is from [facility]. He comes down here not infrequently. Today he was riding a horse. By report the horse was galloping quite fast towards a barn. It did not look like the horse was going to stop so Mr Herrera jumped off of the horse, landing on the ground. He was evaluated in the emergency room and found to have laceration on his frontal bone with underlying fracture that extended into the orbit and frontal sinus. Additionally he had a left collarbone fracture and 2 rib fractures laterally on the left side. He had a large hematoma in the left flank and gluteal area. No intra-abdominal injuries identified. The case was discussed with trauma surgeon in [place] who recommended transfer for further trauma evaluation and washout of the femoral bone fracture in particular. Patient declined transfer and indicated to the emergency room physician that he understood the risk associated with this decision. Patient was going to leave AGAINST MEDICAL ADVICE when he stood up and had a vasovagal event. He did not lose consciousness but was hypotensive and bradycardic. Because of this event he has agreed to stay here but continues to not desire transfer. Hospitalist were originally consulted for admission but given the mechanism of injury was trauma related, patient is being admitted to surgery service with hospitalist consultation. Review of Systems Const: Denies: fever(s) Eyes: Reports: change in vision (Currently) and blurry vision (Experienced during peak of pain); Denies: photophobia or eye discomfort ENMT: Reports: epistaxis (with fall); Denies: nasal congestion Card: Reports: chest pain (Left side, from rib fractures) Resp: Reports: dyspnea (Secondary to pain from rib fractures) and pain on inspiration (not as bad as with movement) GI: Reports: nausea (After pain medication); Denies: abdominal pain, diarrhea or constipation : Denies: difficulty urinating (Has not urinated today however) or hematuria Musc: Reports: back pain (left sided) and extremity pain (Left shoulder, left arm, left hip, right arm and right knee); Denies: neck pain Skin/Breast: Denies: rash, pruritus or sores Neuro: Reports: headache(s) Romeo/Lymph: Reports: other (bleeding from scalp wounds today); Denies: easy bruising or easy bleeding All/Imm: Reports: other (No history of anesthesia problems) Meds/Allergies Home Medications and Allergies Home Medications Medication Instructions Recorded Confirmed Last Taken Type No Known Home Medications 12/03/20 12/03/20 Unknown History Allergies Allergy/AdvReac Type Severity Reaction Status Date / Time Penicillins Allergy Unknown Unknown Verified 12/02/20 16:46 tetanus and diphtheria Allergy Unknown Unknown Verified 12/02/20 16:46 toxoids morphine Allergy ADR-Confusi Verified 12/02/20 19:29 on PFSH Acute PFSH: Medical History (Updated 12/02/20 @ 22:44 by Dari Gil MD) COVID-19 vaccination declined Medical condition not demonstrated Surgical History (Updated 12/02/20 @ 22:16 by Dari Gil MD) History of ankle surgery Family History (Updated 12/02/20 @ 22:24 by Dari Gil MD) Other Family history non-contributory Social History (Updated 12/02/20 @ 22:45 by Dari Gil MD) Smoking and tobacco status: former smoker Alcohol intake: current Alcohol intake frequency: holidays/special occasions only Substance/Drug Use: never Lives independently: Yes Highest education level completed: Professional Degree (MD, DO, REYNA, DVM, DDS, DPM, etc) 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 service: Yes 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 Additional social history: follows more eastern/holistic medical care practices requests that before any medications are given he be allowed to sense if will be able to tolerate them (ask him how to best do this) prefers mind/body techniques and non-pharmacological approaches to care Vitals/I&O/Wt Last Vital Signs Temp 98.0 F 12/02/20 15:06 Pulse 73 12/02/20 18:24 Resp 18 12/02/20 19:47 BP 107/63 12/02/20 18:24 Pulse Ox 99 12/02/20 15:06 Weight last 48 hrs Weight 70.307 kg Physical Exam Narrative: EXAM NARRATIVE: Constitutional: awake, alert, cooperative, looks uncomfortable and not wanting to get up currently after prior event HEENT: steri stripped laceration to right frontal bone, dried blood streams to several areas from this wound, bruising right eyelid with some puffiness surrounding, no sceral hemorrhage seen, extra ocular movements intact and patient denies any pain with movement of right eye, pupils reactive equally bilaterally, dried blood from right nares, no ongoing bleeding noted, moist oral membranes Neck: non tender, prominent left neck veins, non pulsating Respiratory: clear bilaterally, some splinting to left side, no crepitus Chest wall: tender to palpation left midaxillary to left posterior chest around 8 rib level, no crepitus noted. no visible bruising on areas of skin visible with patient laying flat on ED gurney Cardiovascular: regular rhythm, 2+ pulses x 4 Abdomen: left flank pain with palpation, no visible bruising seen with patient flat on ED gurney, soft, positive bowel sounds, no anterior abdominal bruising Extremities/Skin: no pitting edema to lower extremities, some swelling to right upper arm with bruising, left clavicular area without focal tenderness on mild palpation, no crepitus, top of left shoulder with mild edema, left elbow with dressing above and below for IV, Neuro:speech clear, oriented to person, place and situation, moves all ext remities Psych: normal affect, calm, answers questions asked Skin: OTHER: A&P Assessment and plan (1) Injury while horseback riding: Status: Acute (2) Fracture of frontal bone: right frontal bone, open fracture, nondisplaced, extension to right frontal sinus and right orbital roof and superior rim Status: Acute Qualifiers: Encounter type: initial encounter Fracture type: open Qualified Code(s): S02.0XXB - Fracture of vault of skull, initial encounter for open fracture (3) Orbital fracture: Status: Acute Qualifiers: Encounter type: initial encounter Fracture type: closed Qualified Code(s): S02.85XA - Fracture of orbit, unspecified, initial encounter for closed fracture (4) Frontal sinus fracture: Status: Acute Qualifiers: Encounter type: initial encounter Fracture type: closed Qualified Code(s): S02.19XA - Other fracture of base of skull, initial encounter for closed fracture (5) Fracture, ribs: left 8th and 9th lateral, nondisplaced Status: Acute Qualifiers: Encounter type: initial encounter Fracture type: closed Laterality: left Qualified Code(s): S22.42XA - Multiple fractures of ribs, left side, initial encounter for closed fracture (6) Closed left clavicular fracture: Status: Acute Qualifiers: Clavicle location: lateral end Encounter type: initial encounter Fracture alignment: nondisplaced Qualified Code(s): S42.035A - Nondisplaced fracture of lateral end of left clavicle, initial encounter for closed fracture (7) Subcutaneous hematoma: left flank and gluteal area Status: Acute (8) Vaso vagal episode: Upon rising from supine to standing position Status: Acute Additional A&P Information Leukocytosis, likely reaction to acute event Hyperglycemia, likely reaction to acute event IVFs this evening Recheck renal function and hemoglobin in am Serial neuro exams Check orthostatics in am Monitor for progressive concussive symptoms Incentive spirometer - importance related to allowing full lung expansion d espite rib fractures/pain explained Pain control - gabapentin once, IV tylenol tonight, celebrex, tramadol, lidocaine patch to ribs IV fentanyl for severe pain Ice packs as needed Reasoning being pain regimen as ordered described Laxatives ordered and reason for them - narcotics given - discussed with patient PRN bladder scan and straight cath if unable to urinate Monitor for hematuria Clindamycin prophylactically given extension of frontal bone fracture to frontal sinus; penicillin allergy Probiotic twice a day twice daily Monitor closely for acute changes We will reevaluate in the morning Supportive care otherwise No tetanus given due to allergy Plans discussed with patient and he was given opportunity to ask questions Patient requests that any medications be shown to him prior to being brought up and administered so that he can determine if he thinks that he can take them. His preference is for nonpharmacological, mind-body manipulation approaches to medical care when able. Anticipate discharge home though would recommend that he not be alone and be monitored for postconcussive syndrome and development of infection by family members or other caregiver. Reviewed with him the importance of seeking medical care immediately after the point that he is discharged should he start having fevers, headaches, stiff neck, confusion, acute gait abnormalities unrelated to injury, inability to move his right eye, significant vision changes, difficulty breathing. Reviewed that he should expect to have some chest pain and should utilize the incentive spirometer to help expand his lungs despite the fractures and pain and decrease the risk of pneumonia. Also reviewed monitoring urine output, for urinary retention, or hematuria, taking laxatives if he is taking narcotics or other medications that decrease GI motility. Full code Consult Attestations Medical Necessity Statement: Currently anticipate a stay less than 2 midnights for monitoring for recurrent vasovagal/concussive symptoms in a patient who jumped off of a horse to overt more significant injury but sustained quite a few injuries as documented above. He declined transfer to a facility where trauma surgeons could evaluate and clean out his frontal bone fracture. He understands that management of his open frontal bone fracture extending into the orbit and sinus is not something that we are equipped to do at this facility. 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 for Ernst Clark Diagnoses Injury while horseback riding Y93.52 Fracture of frontal bone S02.0XXB Encounter type: initial encounter Fracture type: open Orbital fracture S02.85XA Encounter type: initial encounter Fracture type: closed Frontal sinus fracture S02.19XA Encounter type: initial encounter Fracture type: closed Fracture, ribs S22.42XA Encounter type: initial encounter Fracture type: closed Laterality: left Closed left clavicular fracture S42.035A Clavicle location: lateral end Encounter type: initial encounter Fracture alignment: nondisplaced Subcutaneous hematoma T14.8XXA Vaso vagal episode R55
--- NOTE | 2020-12-02 22:31 | PM.HP ---
Providers/Chief Complaint Admitting Physician: Cal Randle DO Chief Complaint: FOREHEAD LAC S/P THROWN FROM HORSE History of Present Illness Geovanny Herrera is a 75 year old male who fell from a horse earlier today. He denies loss of consciousness and has full recollection of the event. He noted immediate left sided chest pain and bleeding from the right scalp. The pain was noted to be sharp, 8/10, exacerbated by movement. He denies SOB or dyspnea. Review of Systems General: Reports: 10 or more systems reviewed and unremarkable except in HPI and below Card: Reports: chest pain (with movement and deep inspiration) Musc: Reports: extremity pain (right knee) Medications/Allergies Home Medications Medication Instructions Recorded Confirmed Last Taken Type cephalexin 500 mg PO Q12H 10 Days #20 cap 12/02/20 Unknown Rx sulfamethoxazole-trimethoprim 1 tab PO Q12H 10 Days #20 tab 12/02/20 Unknown Rx [Bactrim DS] Allergies Allergy/AdvReac Type Severity Reaction Status Date / Time Penicillins Allergy Unknown Unknown Verified 12/02/20 16:46 tetanus and diphtheria Allergy Unknown Unknown Verified 12/02/20 16:46 toxoids morphine Allergy ADR-Confusi Verified 12/02/20 19:29 on PFSH Acute PFSH: Medical History (Updated 12/02/20 @ 22:44 by Dari Gil MD) COVID-19 vaccination declined Medical condition not demonstrated Surgical History (Updated 12/02/20 @ 22:16 by Dari Gil MD) History of ankle surgery Family History (Updated 12/02/20 @ 22:24 by Dari Gil MD) Other Family history non-contributory Social History (Updated 12/02/20 @ 22:23 by Dari Gil MD) Smoking and tobacco status: former smoker Alcohol intake: current Alcohol intake frequency: holidays/special occasions only Substance/Drug Use: never Lives independently: Yes Highest education level completed: Professional Degree (, , REYNA, DVM, DDS, DPM, etc) 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 service: Yes 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 Additional social history: follows more eastern/holistic medical care practices requests that before any medications are given he be allowed to sense if will be able to tolerate them (ask him how to best do this) prefers mind/body techniques and non-pharmacological approaches to care Vitals/I&O/Wt Last Vital Signs Temp 98.0 F 12/02/20 15:06 Pulse 73 12/02/20 18:24 Resp 18 12/02/20 19:47 BP 107/63 12/02/20 18:24 Pulse Ox 99 12/02/20 15:06 Weight last 48 hrs Weight 155 lb Physical Exam Const: COMMON NORMALS: no acute distress, patient oriented x3 and healthy appearing GENERAL APPEARANCE: cooperative and well kempt ORIENTATION/CONSCIOUSNESS: Yes awake, Yes oriented to person, Yes oriented to place and Yes oriented to time HENMT: HEAD & SCALP: laceration (right scalp, no active bleeding, butterfly bandages in place) Eye: COMMON NORMALS: Equal, round and reactive pupils present PERIORBITAL: periorbital findings abnormal (echymosis right eye) Neck/C-Spine: GENERAL: Yes normal visual inspection and Yes trachea midline CERVICAL SPINE: Yes cervical ROM normal Chest: CHEST: Yes tenderness rib (left) and clavicle (left) Resp: EFFORT & INSPECTION: Yes able to speak in complete sentences AUSCULTATION: clear to auscultation bilaterally Cardio: COMMON NORMALS: regular rate and regular rhythm GI: COMMON NORMALS: Normal to inspection, nondistended, normoactive bowel sounds present : BLADDER/KIDNEY EXAM: Yes no CVA tenderness Back/Pelvis: OTHER: left flank echymosis and edema- non-expanding, binder in place Extremity: RIGHT LOWER EXTREMITY: Yes knee joint Right knee: Yes palpation (tender) and Yes ROM (normal) Neuro: ROLANDO COMA SCALE: document [facility] findings [place] coma scale eye opening: Spontaneous [place] coma scale verbal response: Orientated [place] coma scale motor response: Obey commands [place] coma scale total score: 15 Psych: COMMON NORMALS: mental status grossly normal and Normal thought process present Skin: COMMON NORMALS: no rashes or lesions noted Data : 12/02/20 18:03 12/02/20 18:03 CT Abd/Pel: My impression: I reviewed the images and concur with the radiologist findings. Radiologist's impression: 1. Large left subcutaneous hematoma extending from the left flank to the left gluteal area. No lumbar spine or pelvic fractures are associated. 2. No evidence of solid organ injury. CT Chest: My impression: I reviewed the images and concur with the radiologist findings. Radiologist's impression: 1. Acute fracture of the mid/distal left clavicle. 2. Acute nondisplaced fractures of the left lateral 8th and 9th ribs. No associated pneumothorax. 3. Dependent atelectasis in the bilateral lower lobes. No acute pulmonary infiltrates. CT Head: My impression: I reviewed the images and concur with the radiologist findings. Radiologist's impression: 1. No acute intracranial abnormality. 2. Nondisplaced right frontal bone fracture with extension into the right frontal sinus and right orbital roof. CT Face: My impression: I reviewed the images and concur with the radiologist findings. Radiologist's impression: Nondisplaced right frontal bone fracture with involvement of the right frontal sinus, and right orbital roof and superior rim A&P Additional A&P Information 75 yo male with traumatic injuries s/p fall from horse. - recommend admission for obs to better control pain and manage orthostasis. 1. left 8-9 rib fx- multimodal pain therapy and incentive spirometry 2. facial laceration/fx- ENT consulted and [facility] but patient refusing. wound washed out as best as possible by ED and closed with butterfly bandages 3. left flank hemaoma- compression and observation 4. orthostasis- will order orthostatics, better pain control 5. clavicle fracture- non-displaced, sling for comfort Attestations Medical Necessity Statement*: Geovanny Herrera's hospital stay will be less than 2 midnights for acute traumatic injuries. Coding Level of Care Code Acute Organic Chemistry Teacher for Ernst Clark
[2020-12-02] MEDS: gabapentin 300 mg Capsule 600 MG PO (23:01)
[2020-12-02] MEDS: clindamycin 150 mg Capsule 600 MG PO (23:01)
[2020-12-02] MEDS: sodium chloride 0.9% 1,000 ML 125 ML IV (23:02)
[2020-12-02] MEDS: CELEcoxib 200 mg Capsule PO (23:02)
[2020-12-03] VITALS (7 sets, daily range): BP systolic 98–122; BP diastolic 57–70; PULSE 65–79; RESP 14–18; TEMP 36.7; O2SAT 92–97
[2020-12-03] MEDS: clindamycin 150 mg Capsule 600 MG PO ×2 (05:54→14:44)
[2020-12-03] MEDS: acetaminophen 1,000 MG/100 ML PIGGYBACK 400 MG IV ×2 (05:54→14:44)
[2020-12-03 05:59] LABS: Basophils % 0.2 %; Hematocrit 29.6 % (42.0-52.0); Hemoglobin 9.6 g/dL (11.7-16.6); Lymphocytes # 1.3 10^3/uL (0.8-4.8); Lymphocytes % 22.4 %; Mean Corpuscular HGB Conc 32.4 g/dL (30.0-36.0); Mean Corpuscular Hemoglobin 31.1 pg (28.0-34.0); Mean Corpuscular Volume 95.8 fl (80-94); Mean Platelet Volume 10.3 fL (7.4-10.4); Monocytes # 0.8 10^3/uL (0.2-0.9); Monocytes % 12.6 %; Neutrophils # 3.84 10^3/uL (1.8-7.7); Neutrophils % 64.6 %; Nucleated Red Blood Cells % 0 %; Platelet Count 146 10^3/cmm (130-400); Red Blood Count 3.09 10^6/uL (4.1-5.3); Red Cell Distribution Width 12.6 % (12.1-15.1); White Blood Count 5.9 10^3/uL (4.0-10.0)
[2020-12-03 06:21] LABS: Anion Gap 11.2 (5-19); Blood Urea Nitrogen 15 mg/dL (8-23); Calcium 7.2 mg/dL (8.5-10.5); Carbon Dioxide 22 mmol/L (22-29); Chloride 107 mmol/L (98-107); Glucose 115 mg/dL (65-115); Osmolality Calculated 284 mOsm/kg (285-295); Potassium 4.2 mmol/L (3.5-5.1); Sodium 136 mmol/L (136-145)
--- NOTE | 2020-12-03 07:30 | PC.NURSE ---
patient resting comfortably at this time. no acute distress noted.
[2020-12-03] MEDS: docusate sodium 100 mg Capsule PO (08:44)
[2020-12-03] MEDS: sodium chloride 0.9% 1,000 ML 125 ML IV (10:21)
--- NOTE | 2020-12-03 11:01 | PC.NURSE ---
right periorbital ecchymosis, patient tolerated pain well, no acute distress noted.
--- NOTE | 2020-12-03 12:03 | P.DS_ITS ---
Discharge Providers Date of Admission: 12/02/20 19:56 Date of Discharge: December 03, 2020 Attending Provider at Admission: Cal Randle DO Attending Provider at Discharge: Cal Randle DO Diagnoses at Discharge Discharge Diagnosis (1) Injury while horseback riding: Status: Acute Permanent problem details: With right open frontal bone fracture, nondisplaced, extension to right frontal sinus and right orbital roof and superior rim; left lateral 8th/9th rib fractures, left clavicle fracture, subcutaneous hematoma left flank and gluteal region (2) Fracture of frontal bone: Status: Acute Permanent problem details: right frontal bone, nondisplaced, extension to right frontal sinus and right orbital roof and superior rim Qualifiers: Encounter type: initial encounter Fracture type: open Qualified Code(s): S02.0XXB - Fracture of vault of skull, initial encounter for open fracture (3) Orbital fracture: Status: Acute Permanent problem details: extension of right frontal bone fracture Qualifiers: Encounter type: initial encounter Fracture type: closed Qualified Code(s): S02.85XA - Fracture of orbit, unspecified, initial encounter for closed fracture (4) Frontal sinus fracture: Status: Acute Permanent problem details: extension of right frontal bone fracture Qualifiers: Encounter type: initial encounter Fracture type: closed Qualified Code(s): S02.19XA - Other fracture of base of skull, initial encounter for closed fracture (5) Fracture, ribs: Status: Acute Permanent problem details: left 8th and 9th lateral Qualifiers: Encounter type: initial encounter Fracture type: closed Laterality: left Qualified Code(s): S22.42XA - Multiple fractures of ribs, left side, initial encounter for closed fracture (6) Closed left clavicular fracture: Status: Acute Qualifiers: Encounter type: initial encounter Clavicle location: lateral end Fracture alignment: nondisplaced Qualified Code(s): S42.035A - Nondisplaced fracture of lateral end of left clavicle, initial encounter for closed fracture (7) Subcutaneous hematoma: Status: Acute Permanent problem details: left flank and gluteal area (8) Vaso vagal episode: Status: Acute Reason for Visit Reason for Visit: FOREHEAD LAC S/P THROWN FROM HORSE Hospital Course Hospital Course Patient was kept overnight for observation given his vasovagal episode and inability to ambulate. Patient had no further events overnight. His hemoglobin did drop from 13-10 however this is likely dilutional. Patient's vitals were completely normal at time of discharge. He was able to ambulate with normal orthostatics. Discussed at length with his family what to look out for regarding changes in his mental status, enlargement of his left flank hematoma, and changes in his vision. They all verbalized understanding. Physical Exam Const: COMMON NORMALS: no acute distress and patient oriented x3 HENMT: HEAD & SCALP: laceration (Right forehead-no evidence of infection well approximated) Eye: COMMON NORMALS: Equal, round and reactive pupils present and EOMs intact bilaterally VISUAL ACUITY: Yes acuity normal PERIORBITAL: periorbital findings abnormal positive right periorbital swelling and periorbital ecchymosis CONJUNCTIVA: Yes conjunctival abnormal positive right conjunctival chemosis PUPIL: Yes Equal, round and reactive pupils present Neck/C-Spine: COMMON NORMALS: full ROM Chest: CHEST: Yes Symmetrical chest wall rise, Yes tenderness rib (Over left eighth and ninth ribs) and Yes Ecchymosis present Resp: COMMON NORMALS: normal respiratory effort and clear to auscultation bilaterally AUSCULTATION: clear to auscultation bilaterally Cardio: COMMON NORMALS: regular rate and regular rhythm RATE: regular rate RHYTHM: regular rhythm GI: COMMON NORMALS: Normal to inspection, nondistended, normoactive bowel sounds present, Soft to palpation and non-tender PALPATION: Yes Soft to palpation Back/Pelvis: GENERAL BACK: Yes ecchymosis (Left flank), Yes tenderness and Yes other (Left flank with likely hematoma or Wallace Lavern lesion-stable) Extremity: COMMON NORMALS: normal to inspection and full ROM RIGHT UPPER EXTREMITY: Yes lower arm (Ecchymosis and mild edema with possible hematoma- stable) Neuro: COMMON NORMALS: patient oriented x3 Discharge Data Data Completed and Pending: Completed Studies During Hospitalization Category Date Time Status CT chest abd pel w con* Urgent Cat Scan 12/02/20 18:[address] facial bones w o con* 40124 Urgen t Cat Scan 12/02/20 15:[address] head wo con* 7 0450 Urgent Cat Scan 12/02/20 15:20 Completed XR chest 1V corie ble 02154 Urgent Exams 12/02/20 15:20 Completed XR forearm RT 2V 56108 Urgent Exams 12/02/20 15:20 Completed XR pelvis 1-2V* 7 2170 Urgent Exams 12/02/20 15:20 Completed XR ribs LT 2V* 71 100 Urgent Exams 12/02/20 15:20 Completed Pending at discharge Category Date Time Status Retype for Patihonorio s ABO/Rh Routine Lab 12/02/20 18:57 Ordered Labs from last 24 hours 12/03/20 12/03/20 12/02/20 04:54 04:54 20:20 WBC 5.9 RBC 3.09 L Hgb 9.6 L Hct 29.6 L MCV 95.8 H MCH 31.1 MCHC 32.4 RDW 12.6 Plt Count 146 MPV 10.3 Neut % (Auto) 64.6 Lymph % (Auto) 22.4 Mcintosh % (Auto) 12.6 Eos % (Auto) 0.0 Baso % (Auto) 0.2 Neut # (Auto) 3.84 Lymph # (Auto) 1.3 Mcintosh # (Auto) 0.8 Eos # (Auto) 0.0 Baso # (Auto) 0.0 Nucleated RBC % (a uto) 0 Nucleated RBCs # 0.0 Sodium 136 Potassium 4.2 Chloride 107 Carbon Dioxide 22 Anion Gap 11.2 BUN 15 Creatinine 0.7 GFR Calculation Not Reportable Glucose 115 Calculated Osmolal ity 284 L Calcium 7.2 L Total Bilirubin AST ALT Alkaline Phosphata se Troponin T Gen 5 n g/L 7 Total Protein Albumin Globulin Lipase Blood Type Rho(D) Type Antibody Screen 12/02/20 12/02/20 12/02/20 18:03 18:03 18:03 WBC 12.9 H RBC 4.08 L Hgb 12.7 Hct 39.6 L MCV 97.1 H MCH 31.1 MCHC 32.1 RDW 12.4 Plt Count 184 MPV 10.1 Neut % (Auto) 82.5 Lymph % (Auto) 7.4 Mcintosh % (Auto) 9.0 Eos % (Auto) 0.0 Baso % (Auto) 0.4 Neut # (Auto) 10.67 H Lymph # (Auto) 1.0 Mcintosh # (Auto) 1.2 H Eos # (Auto) 0.0 Baso # (Auto) 0.1 Nucleated RBC % (a uto) 0 Nucleated RBCs # 0.0 Sodium 141 Potassium 4.0 Chloride 105 Carbon Dioxide 24 Anion Gap 16.0 BUN 17 Creatinine 0.9 GFR Calculation Not Reportable Glucose 132 H Calculated Osmolal ity 295 Calcium 8.3 L Total Bilirubin 0.6 AST 24 ALT 13 Alkaline Phosphata se 78 Troponin T Gen 5 n g/L Total Protein 5.9 L Albumin 4.0 Globulin 1.9 Lipase Blood Type A Positive Rho(D) Type Positive Antibody Screen Negative 12/02/20 12/02/20 15:10 15:10 WBC 7.2 RBC 4.15 Hgb 12.9 Hct 39.7 L MCV 95.7 H MCH 31.1 MCHC 32.5 RDW 12.4 Plt Count 172 MPV 9.9 Neut % (Auto) 46.1 Lymph % (Auto) 44.4 Mcintosh % (Auto) 7.9 Eos % (Auto) 0.4 Baso % (Auto) 0.4 Neut # (Auto) 3.32 Lymph # (Auto) 3.2 Mcintosh # (Auto) 0.6 Eos # (Auto) 0.0 Baso # (Auto) 0.0 Nucleated RBC % (a uto) 0 Nucleated RBCs # 0.0 Sodium 141 Potassium 4.0 Chloride 106 Carbon Dioxide 24 Anion Gap 15.0 BUN 14 Creatinine 1.1 GFR Calculation Not Reportable Glucose 130 H Calculated Osmolal ity 294 Calcium 8.4 L Total Bilirubin 0.5 AST 25 ALT 14 Alkaline Phosphata se 81 Troponin T Gen 5 n g/L Total Protein 6.4 L Albumin 4.2 Globulin 2.2 Lipase 32 Blood Type Rho(D) Type Antibody Screen Vitals: Last Vital Signs Temp 98.0 F 12/03/20 06:24 Pulse 67 12/03/20 10:18 Resp 18 12/03/20 10:18 BP 113/69 12/03/20 10:18 Pulse Ox 96 12/03/20 10:18 Discharge Plan Discharge Patient Disposition: Home Condition: Stable Prescriptions: New celecoxib 200 mg Capsule 200 mg PO Q12H 14 Days Qty: 28 RF: 1 clindamycin HCl 150 mg Capsule 600 mg PO Q8H 2 Days Qty: 24 RF: 0 Acetaminophen Extra Strength 500 mg tablet 500 mg PO Q4H MDD 4 gm PRN (Reason: pain) Qty: 30 RF: 0 No Action No Known Home Medications RF: 0 Discharge Orders: Discharge Order (Routine); Ordered 12/03/20 Ordered By: Cal Randle Discharge Diet: Advance as tolerated Discharge Activity: Resume usual activity Patient Instructions: Laceration (ED), Opioid Safety Activity Restrictions/Additional Instructions: Please come back to the emergency room if you notice they have any pus coming out of the wound, if have any fever or chills, drainage, any worsening pain, or any new or concerning complaints. Discharge Attestations Time Spent in Discharge Care*: greater than 30 min Quality Metrics Clinical Quality Measures During this hospital stay, did patient experience: None Coding Level of Care Code Acute [facility] note Diagnoses Injury while horseback riding Y93.52 Fracture of frontal bone S02.0XXB Encounter type: initial encounter Fracture type: open Orbital fracture S02.85XA Encounter type: initial encounter Fracture type: closed Frontal sinus fracture S02.19XA Encounter type: initial encounter Fracture type: closed Fracture, ribs S22.42XA Encounter type: initial encounter Fracture type: closed Laterality: left Closed left clavicular fracture S42.035A Encounter type: initial encounter Clavicle location: lateral end Fracture alignment: nondisplaced Subcutaneous hematoma T14.8XXA Vaso vagal episode R55
--- NOTE | 2020-12-03 13:23 | PC.NURSE ---
patient ambulated for about 80 steps, tolerated well, denied any dizziness.
--- NOTE | 2020-12-03 13:44 | PC.NURSE ---
patient resting comfortably at this time. no acute distress noted.
--- NOTE | 2020-12-03 13:49 | PC.NURSE ---
spirometer provided by RT, patient understood how to use it.
--- NOTE | 2020-12-03 14:38 | P.PN_ITS ---
Subjective Subjective: Interval history: Reports he is doing quite well currently. His pain level has subsided quite significantly. He has ambulated in the room. He has urinated. Requests to go home. I encouraged him to seek medical attention in case of any headache, fever, significant swelling around the eye, any diplopia or gaze difficulty. Discussed his current fractures, discussed risk of infection, including orbital cellulitis, [employer] infection. Discussed with him if he is feeling unwell in any way to seek medical attention immediately. Encouraged him to establish with primary care provider. Vitals/I&O/Wt Last Vital Signs Temp 98.0 F 12/03/20 06:24 Pulse 79 12/03/20 13:40 Resp 18 12/03/20 13:40 BP 113/69 12/03/20 10:18 Pulse Ox 92 12/03/20 13:40 12/02/20 12/03/20 12/03/20 22:59 06:59 14:59 Intake Total 1000 / 1000 1100 / 1100 Output Total 350 / 350 Balance 1000 / 1000 750 / 750 Weight last 48 hrs Weight 70.307 kg Physical Exam Const: COMMON NORMALS: no acute distress, patient oriented x3 and alert GENERAL APPEARANCE: cooperative and comfortable ORIENTATION/CONSCIOUSNESS: Yes awake HENMT: OTHER: Bruising above the right eye, minimal palpebral swelling. No trouble tracking me around the room. Laceration on scalp without drainage, bleeding. No surrounding erythema. Neck/C-Spine: COMMON NORMALS: no JVD Resp: COMMON NORMALS: normal respiratory effort and clear to auscultation bilaterally AUSCULTATION: clear to auscultation bilaterally Cardio: COMMON NORMALS: no JVD, regular rhythm, S1 normal heart sound present, S2 normal heart sound present and No murmurs present (Cardio) RHYTHM: regular rhythm HEART SOUNDS: S1 normal heart sound present and S2 normal heart sound present GI: COMMON NORMALS: Normal to inspection, nondistended, normoactive bowel sounds present, Soft to palpation and non-tender PALPATION: Yes Soft to palpation Extremity: COMMON NORMALS: no joint enlargement and no pedal edema OTHER: Bruising, swelling right forearm Neuro: COMMON NORMALS: patient oriented x3 and moves all extremities SENSORIUM/ORIENTATION: Yes alert Skin: COMMON NORMALS: no rashes or lesions noted GENERAL SKIN EXAM: no rashes or lesions noted Data : 12/03/20 04:54 12/03/20 04:54 A&P Assessment and plan (1) Injury while horseback riding: After jumping off the horse. Today he is doing much better, wanting to return home. He has ambulated, urinated. Pain level is much better. No dizziness, lightheadedness or presyncope. Encouraged him to seek medical attention in case of any concerning symptoms. Encouraged him to establish with primary care provider. Status: Acute (2) Fracture of frontal bone: right frontal bone, open fracture, nondisplaced, extension to right fr ontal sinus and right orbital roof and superior rim Status: Acute Qualifiers: Encounter type: initial encounter Fracture type: open Qualified Code(s): S02.0XXB - Fracture of vault of skull, initial encounter for open fracture (3) Orbital fracture: Status: Acute Qualifiers: Encounter type: initial encounter Fracture type: closed Qualified Code(s): S02.85XA - Fracture of orbit, unspecified, initial encounter for closed fracture (4) Frontal sinus fracture: Status: Acute Qualifiers: Encounter type: initial encounter Fracture type: closed Qualified Code (s): S02.19XA - Other fracture of base of skull, initial encounter for closed fracture (5) Fracture, ribs: left 8th and 9th lateral, nondisplaced Status: Acute Qualifiers: Encounter type: initial encounter Fracture type: closed Laterality: left Qualified Code(s): S22.42XA - Multiple fractures of ribs, left side, initial encounter for closed fracture (6) Closed left clavicular fracture: Status: Acute Qualifiers: Encounter type: initial encounter Clavicle location: lateral end Fracture alignment: nondisplaced Qualified Code(s): S42.035A - Nondisplaced fracture of lateral end of left clavicle, initial encounter for closed fracture (7) Subcutaneous hematoma: left flank and gluteal area Status: Acute (8) Vaso vagal episode: Upon rising from supine to standing position Status: Acute Additional A&P Information Leukocytosis, likely reaction to acute event Hyperglycemia, likely reaction to acute event Attestations Medical Necessity Statement*: Returning home. Coding Level of Care Code Acute [employer] Diagnoses Injury while horseback riding Y93.52 Fracture of frontal bone S02.0XXB Encounter type: initial encounter Fracture type: open Orbital fracture S02.85XA Encounter type: initial encounter Fracture type: closed Frontal sinus fracture S02.19XA Encounter type: initial encounter Fracture type: closed Fracture, ribs S22.42XA Encounter type: initial encounter Fracture type: closed Laterality: left Closed left clavicular fracture S42.035A Encounter type: initial encounter Clavicle location: lateral end Fracture alignment: nondisplaced Subcutaneous hematoma T14.8XXA Vaso vagal episode R55
== END 2020-12-03 15:30 | disposition left against medical advice (07) ==
LOC: ER 19:32 → ER IP 22:01
PROVIDERS: Hospitalist; Emergency Provider Emergency Medicine; Visit Provider Anesthesiology Critical Care Medicine
DX: S02.0XXB Fracture of vault of skull, initial encounter for open fracture (principal); S02.85XA Fracture of orbit, unspecified, initial encounter for closed fracture; S22.42XA Multiple fractures of ribs, left side, initial encounter for closed fracture; V80.010A Animal-rider injured by fall from or being thrown from horse in noncollision accident, initial encounter; Z87.891 Personal history of nicotine dependence; Z53.21 Procedure and treatment not carried out due to patient leaving prior to being seen by health care provider
CPT/HCPCS: 36415; 70450; 70486; 71045; 71100; 71260; 72170; 73090; 74177; 80048; 80053; 83690; 84484; 85025; 86850; 86900; 96365; 96366; 96375; 99285; J2405; J3010; J7030; Q9967